=== PATIENT | male | born 1990 | race Caucasian/White ===

== ENCOUNTER 2024-05-07 16:28 | Emergency (ER) | payer BC, SELFPAY ==
[2024-05-07 17:00] VITALS: BP 124/69; PULSE 90; RESP 18; TEMP 36.4; O2SAT 99
--- NOTE | 2024-05-07 17:04 | ED_ITS ---
HPI - URI/Sore Throat General Chief Complaint: Upper Respiratory Infection Stated Complaint: sore throat Time Seen by Provider: 05/07/24 17:05 Source: patient, RN notes reviewed and old records reviewed Mode of arrival: ambulatory Limitations: no limitations History of Present Illness HPI Narrative: 33-year-old male presents to the [facility] with complaints of chills, hoarse voice, sore throat, fatigue that started at 3:00 p.m. yesterday afternoon. Did take some vitamin-C Pac and acetaminophen Related Data Home Medications ?Medication ?Instructions ?Recorded ?Confirmed ?Last Taken ?Type No Home Medications 04/06/24 04/13/24 Unknown History Allergies Allergy/AdvReac Type Severity Reaction Status Date / Time No Known Allergies Allergy Verified 05/07/24 17:08 Review of Systems Review of Systems: All systems reviewed & are unremarkable except as noted in HPI and below Constitutional: Constitutional: Reports as per HPI, Reports chills and Reports fatigue ENT: Reports as per HPI and Reports sore throat Cardiovascular: Cardiovascular: Reports no additional cardiovascular complaints, Denies chest pain and Denies dyspnea Respiratory: Respiratory: Reports no additional respiratory complaints, Denies chest congestion, Denies cough and Denies dyspnea Musculoskeletal: Musculoskeletal: Reports no additional musculoskeletal complaints Integumentary/Breasts: Skin/Breast: Reports system reviewed and no additional complaints, except as docu PMFSH Past Medical History Medical History ADD (attention deficit disorder) Right shoulder pain Left shoulder pain Shoulder pain MDD (major depressive disorder) Anxiety Social History Social History Smoking status: Never smoker Smokeless tobacco user: chewing tobacco Alcohol intake: former Substance use: never Substance use type: does not use Lack of Transportation: No Lack of Food: Never True Current Housing: I Have Housing Concerned About Future Housing: No Difficulty Paying Gas/Electric Bills: No Difficulty Paying for Meds: No Currently Unemployed: No Education: High School Diploma/GED Difficulty w/ Childcare or Family Care: No Living arrangements: with family Occupation/Education: occupation Gender identity (if verbalized by the patient): Male Sexual Orientation (if Verbalized by the Patient): Straight or Heterosexual Comments At the time of my signature, I reviewed and agree with the nursing past medical, surgical, social, and family history. There is no relevant family history pertinent to the patient complaint. Exam Const: General: cooperative, healthy appearing, comfortable, no acute distress, well developed, alert and well nourished Nutritional Appearance: well nourished Orientation/consciousness: patient oriented x3 Limitations: no limitations HENMT: Head: normal to inspection Ears: hearing grossly normal bilaterally, external ears normal, TM's normal bilaterally, EAC's normal, mastoids normal and no periauricular adenopathy Mouth: Yes Normal oral and palatal mucosa present, Yes lip normal, Yes tongue normal and Yes moist mucous membranes Throat: posterior oropharynx normal, tonsils normal, uvula midline and no uvular edema Eyes: General: appearance normal, both eyes and all related structures Alignment and Position: alignment normal Neck: Neck: normal visual inspection, full ROM, no lymphadenopathy and no meningeal signs Chest: Chest palpation & inspection: normal inspection of the chest Resp: Effort & Inspection: normal respiratory effort and able to speak in complete sentences Auscultation: clear to auscultation bilaterally, no crackles, no rales, no rhonchi and no wheezes Cardio: Rate: regular rate Skin: General skin exam: normal color and no rashes or lesions noted Neuro: General: patient oriented x3, gait normal, moves all extremities and no meningeal signs Cognition (Neuro): normal cognition Speech: normal speech Gait exam (Neuro): Normal gait present Extrem: General: normal to inspection, full ROM, capillary refill normal and normal gait Psych: Appearance: grossly normal and well kempt Mental Status: mental st atus grossly normal Speech and movement: Normal speech and movement present and Clear speech present Affect: normal affect Attitude: cooperative Course Course Level of Care: Express Care Visit Vital Signs Vital signs: Vital Signs Temperature 97.5 F L 05/07/24 17:00 Pulse Rate 90 05/07/24 17:00 Respiratory Rate 18 05/07/24 17:00 Blood Pressure 124/69 05/07/24 17:00 Pulse Oximetry 99 05/07/24 17:00 Oxygen Delivery Room Air 05/07/24 17:00 Temperature 97.5 F L 05/07/24 17:00 Pulse Rate 90 05/07/24 17:00 Respiratory Rate 18 05/07/24 17:00 Blood Pressure 124/69 05/07/24 17:00 Pulse Oximetry 99 05/07/24 17:00 Oxygen Delivery Room Air 05/07/24 17:00 Reviewed MDM - URI/Sore Throat MDM Narrative Medical decision making narrative: Patient sitting comfortably in exam room. Nontoxic, vitals stable. Patient with approximately 24 hours of URI symptoms. Flu, COVID, strep are negative. No acute findings noted on exam. Patient appropriate for outpatient treatment and follow-up Discharge instructions reviewed with patient, as well as provided in writing per nursing staff. The instructions also include specific and strict return/GO TO THE ER as well as f/u information. All questions have been answered, and the patient deny any further questions with discharge and discharge plan. Some parts of this dictation were generated by voice recognition software and may contain typographical and/or grammatical inaccuracies. Differential Diagnosis Differential diagnosis: Likely upper respiratory infection, otitis media, sinusitis, viral infection, bronchitis, influenza and pharyngitis Lab Data Labs: Lab Results 05/07/24 05/07/24 Range/Units 17:10 17:10 POC Influenza A Ag Negative (Negative) POC Influenza B Ag Negative (Negative) POC SARS CoV-2 Ag Negative (Negative) POC Grp A Strep Screen Negative Negative (Negative) Reviewed Critical Care Time Critical Care Time Critical Care Time: No Discharge Plan Discharge Clinical Impression: Upper respiratory infection Qualifiers: URI type: unspecified viral URI Qualified Code(s): J06.9 - Acute upper respiratory infection, unspecified Patient Disposition: Home, Self-Care Condition: Stable Instructions: Antibiotic Form, Upper Respiratory Infection (ED) Additional Instructions: Your rapid strep swab was negative today at [facility]. A throat culture will be sent to the laboratory for further testing. If the test is positive, you will receive a phone call within 48 hours and an appropriate antibiotic will be initiated at that time. Your rapid COVID test were negative Your rapid flu test was negative Your symptoms are likely due to a viral illness, which is not treated with antibiotics. Typically viral infections last 7-10 days, can linger for couple of weeks. It is very important to treat your symptoms. Drink plenty of water, Gatorade, Pedialyte, ice pops or Jell-O. -Alternate Tylenol and Motrin per package directions for fever or pain. You can alternate every 4 hours -Antihistamine medication such as Benadryl at night and Zyrtec/Claritin/Tati during the day can help improve symptoms. -doing daily nasal irrigations can help relieve pressure your sinuses. Things like a Neti pot -Use Flonase twice a day for 5 days then daily to help reduce the inflammation and dry up your sinuses. -You can also use Mucinex. Be sure to drink plenty of water with this medication at least 8 ounces with every dose and it is important to drink 8 to 10 glasses of water per day. Water is a natural decongestant -Eat and drink things that are easy to swallow, like tea or soup, or popsicles. -Oral rinses such as: Salt water gargles and/or may use topical anesthetic (eg. Chloraseptic spray) or lozenges to relieve dryness or throat pain). -Frequent hand washing or hand warehouse pricing and inventory clerk is one of the best ways to prevent spread of infection. -Using a vaporizer or humidifier at night will also help thin secretions and help with coughing up phlegm. -Follow up with primary care provider in 7-10 days if condition is not improving - For new or worsening symptoms go directly to the nearest ER Patient Language: Macedonian Prescriptions: No Action No Home Medications Follow-up/Referrals: UNKNOWN,DOCTOR [Primary Care Provider] - Stand Alone Forms: Work/School Release IP Time of Disposition: 17:27
[2024-05-07 17:12] LABS: EDCOVIDSCREEN Negative (Negative); EDINFLUASCREEN Negative (Negative); EDINFLUBSCREEN Negative (Negative); EDSTREPNEGPOS1 Negative (Negative)
== END 2024-05-07 17:30 | disposition home or self-care (01) ==
PROVIDERS: Emergency Provider Nurse Practitioner
DX: J06.9 Acute upper respiratory infection, unspecified (principal); Z20.822 Contact with and (suspected) exposure to COVID-19
CPT/HCPCS: 87081; 87426; 87804; 87880; 99213; G0463